=== PATIENT | female | born 1940 | race Caucasian/White ===

== ENCOUNTER 2017-02-10 00:38 | Emergency (ER) | payer MEDICARE ==
[2017-02-10] MEDS ORDERED: methylPREDNISolone Sod Succ/PF 125 MG/2 ML VIAL ONE (00:47)
[2017-02-10] MEDS ORDERED: Furosemide 40 MG/4 ML VIAL ONE ×3 (01:00→01:45)
[2017-02-10 01:21] LABS: PTT 28.2 SEC (22.9-36.1)
[2017-02-10 01:22] LABS: D-Dimer Test 2.2 *mcg/mL (0.27-0.43); INR-International Normal Ratio 1.1
[2017-02-10 01:27] LABS: CKMB 2.7 ng/mL (0-6.6); Troponin I 0.061 ng/mL (< 0.028)
[2017-02-10 01:28] LABS: ALT (SGPT) 38 U/L (8-55); AST (SGOT) 72 U/L (5-34); Albumin 3.7 g/dL (3.4-4.8); Alkaline Phosphatase 135 U/L (40-150); Anion Gap 22 mmol/L (10-20); BUN (Urea Nitrogen) 18 mg/dL (9.8-20.1); Bilirubin, Total 0.4 mg/dL (0.2-1.2); Calc. Creatinine Clearance 0 mL/min (70-130); Calcium 8.4 mg/dL (7.8-10.44); Carbon Dioxide 20 mmol/L (23-31); Chloride 107 mmol/L (98-107); Estimated GFR-MDRD 46; Globulin 4.1 g/dL (2.4-3.5); Glucose 333 mg/dL (83-110); Potassium 3.7 mmol/L (3.5-5.1); Protein, Total 7.8 g/dL (6.0-8.3); Sodium 145 mmol/L (136-145)
[2017-02-10] MEDS ORDERED: Morphine 4 MG/ML VIAL ONE (01:29)
[2017-02-10 01:30] LABS: Hemoglobin 15.3 g/dL (12.0-16.0); Mean Corpuscular Hemoglobin 31.2 pg (27.0-31.0); Mean Corpuscular Volume 97.5 fl (81.0-99.0); Mean Platelet Volume 10.3 fL (7.4-10.4); Platelet Count 178 thou/uL (130-400); RBC Distribution Width 13.4 % (11.5-14.5); Red Blood Cell (RBC) Count 4.91 mill/uL (4.20-5.40); White Blood Cell (WBC) Count 14.7 thou/uL (4.8-10.8)
[2017-02-10 01:31] LABS: Anisocytosis SLIGHT = 6-15 cells (100X) (0-5/hpf); Band 2 % (5-11); Eosinophils 2 % (0-10); Lymphocytes 44 % (21-51); MDiff Complete? YES; Monocytes 3 % (0-10); Neutrophil 42 % (42-75); PLT Morphology Comment Appears Adequate; Poikilocytosis SLIGHT = 6-15 cells (100X) (0-5/hpf); RBC Morphology Abnormal; Reactive Lymphocytes 7 % (0-10)
[2017-02-10] MEDS ORDERED: Nitroglycerin 2% Ointment 1 INCH/1 GM Packet ONE (01:33)
--- NOTE | 2017-02-10 07:47 | RAD ---
AP VIEW CHEST: Date: 02/10/17 HISTORY: Difficulty breathing. FINDINGS: AP view of chest obtained. Comparison studies are not available. AP view of chest demonstrates cardiomegaly seen. Pulmonary vascular congestion is seen. Sternotomy wi res are seen. Diffuse interstitial densities seen throughout the lungs compatible with interstitial e allyson or possible fibrotic changes. IMPRESSION: Cardiomegaly and pulmonary vascular congestion with small bilateral pleural effusions seen. POS: [facility]
== END 2017-02-10 01:16 | disposition short-term general hospital (02) ==
LOC: MADERS 00:38
DX: I11.0 Hypertensive heart disease with heart failure (principal); I50.9 Heart failure, unspecified; E78.5 Hyperlipidemia, unspecified; F17.210 Nicotine dependence, cigarettes, uncomplicated; I25.10 Atherosclerotic heart disease of native coronary artery without angina pectoris
CPT/HCPCS: 51702; 71010; 80053; 82553; 83880; 84484; 85025; 85379; 85610; 85730; 96374; 96375; 99292; J1940; J2270; J2930; J7620

== ENCOUNTER 2018-01-14 12:47 | Emergency (ER) | payer MEDICARE ==
[2018-01-14] MEDS ORDERED: Acetaminophen 500 MG TAB ONE (13:28)
--- NOTE | 2018-01-14 13:30 | RAD ---
RIGHT HUMERUS 2 VIEWS: INDICATION: Trauma with fall and pain. FINDINGS: There is a mildly comminuted and mildly displaced subcapital fracture of the proximal right humerus. Slightly avulsed fracture fragment is also seen, underlying the greater tuberosity. IMPRESSION: Comminuted mildly displaced proximal right humeral fracture. Recommend orthopedic consultation. POS: [facility]
== END 2018-01-14 13:45 | disposition home or self-care (01) ==
LOC: MADERS 12:47
DX: S42.201A Unspecified fracture of upper end of right humerus, initial encounter for closed fracture (principal); E78.5 Hyperlipidemia, unspecified; I25.10 Atherosclerotic heart disease of native coronary artery without angina pectoris; J44.9 Chronic obstructive pulmonary disease, unspecified; I11.0 Hypertensive heart disease with heart failure; I50.9 Heart failure, unspecified; Z79.891 Long term (current) use of opiate analgesic; Z79.82 Long term (current) use of aspirin; Z79.899 Other long term (current) drug therapy; W17.89XA Other fall from one level to another, initial encounter